=== PATIENT | male | born 1935 | race Caucasian/White ===

== ENCOUNTER → 2016-09-18 | Outpatient (CLI) | payer OTHER ==
[~2016-09-18] MED LIST: ASPIR 8181 M1 PO; CITRUCEL907 G1 PO; CLARITIN,ALAVAR10 MG PO; LISINOPRIL-HCT1 EAC3 PO; LORAZEPAM0.5 MG PO; MIRALAX17 GM PO; OMEPRAZOLE40 M1 PO; SPIRIVA1 INHALATI IH; SYMBICORT60 INHALAT IH
[2016-09-18 09:15] LABS: INTER. NORMALIZED RATIO 1.4; PTT 32.9 (25-32)
== END | disposition home or self-care (01) ==
LOC: OPR 08:40 → EDSTATUS 09:00 → OPR 09:00
PROVIDERS: Family Medicine
PROC: 0FB03ZX Excision of Liver, Percutaneous Approach, Diagnostic (ICD-10-PCS; principal; 2016-09-18)
DX: C22.9 Malignant neoplasm of liver, not specified as primary or secondary (principal)
CPT/HCPCS: 77012; 85610; 85730; 88307; 88341 TC; 88342 TC; J3010

== ENCOUNTER 2016-11-22 13:11 | Inpatient (IN) | payer OTHER ==
[~2016-11-22] VITALS: Ht 185.4 cm; Wt 77.1 kg
[~2016-11-22 13:11] MED LIST changes: -KENALOG,ARISTOC80 GM TP
[2016-11-22 13:51] LABS: HEMATOCRIT 37.4 % (38.0-50.0); MCHC 34.5 G/DL (30.0-36.0); MCV 95.7 FL (86-99); MEAN PLAT.VOLUME 10.6 uM^3 (9.0-12.4); PLATELET COUNT 195 K/uL (156-360); RBC DIS.WIDTH-CV 20.8 % (11.8-14.6); RBC DIS.WIDTH-SD 72.2 % (39-53); RED BLOOD COUNT 3.91 M/uL (4.00-5.50); WHITE BLOOD COUNT 11.3 K/uL (4.1-10.2)
[2016-11-22 14:01] LABS: CHLORIDE 104 mEq/L (99-109); SODIUM 136 mEq/L (136-147)
[2016-11-22 14:03] LABS: GLUCOSE 104 mg/dL (70-99)
[2016-11-22 14:04] LABS: ANION GAP 14 MEQ/L (2-14)
[2016-11-22 14:05] LABS: TOTAL BILIRUBIN 15.3 mg/dL (0.0-1.0)
[2016-11-22 14:07] LABS: ALKALINE PHOSPHATASE 656 IU/L (3-129); GFR ESTIMATE (CALCULATED) 34 mL/min/
[2016-11-22 14:08] LABS: UREA NITROGEN (BUN) 62 mg/dL (9-23)
[2016-11-22 14:25] LABS: INTER. NORMALIZED RATIO 2.2; PROTHROMBIN TIME 22.7 (9.2-11.2)
[2016-11-22] MEDS ORDERED: KENALOG,ARISTOC80 GM TP (16:18)
[2016-11-22 17:21] VITALS: BP 82/56
== END 2016-11-23 23:38 | DRG 200 ==
LOC: EME → EDBD 13:11 → EDOF 15:40 → 5EAST 17:38
PROVIDERS: Emergency Medicine
DX: J93.11 Primary spontaneous pneumothorax (principal); C34.90 Malignant neoplasm of unspecified part of unspecified bronchus or lung; C79.9 Secondary malignant neoplasm of unspecified site; C22.9 Malignant neoplasm of liver, not specified as primary or secondary; J96.10 Chronic respiratory failure, unspecified whether with hypoxia or hypercapnia; R18.8 Other ascites; R17 Unspecified jaundice; J44.9 Chronic obstructive pulmonary disease, unspecified; F17.200 Nicotine dependence, unspecified, uncomplicated; Z51.5 Encounter for palliative care; Z66 Do not resuscitate
CPT/HCPCS: 71010; 80053; 85027; 85610; 94799; 99281; 99285; J2060; J2270; J7040; P9045

== ENCOUNTER → 2016-11-22 | Outpatient (CLI) | payer OTHER ==
[~2016-11-22] MED LIST changes: +ATIVAN0.5 MG PO; +FLOMAX0.4 MG PO; +KENALOG,ARISTOC80 GM TP; +LASIX20 MG PO; +POTASSIUM CHLO10 ME3 PO; +TYLENOL EXTRA500 MG PO
== END | disposition home or self-care (01) ==
LOC: RAD 08:16
PROC: 0W9G3ZZ Drainage of Peritoneal Cavity, Percutaneous Approach (ICD-10-PCS; principal; 2016-11-22)
DX: R18.8 Other ascites (principal)
CPT/HCPCS: 88108